=== PATIENT | male | born 1935 | race American Indian/Alaskan Native ===

== ENCOUNTER 2017-12-06 09:44 | Outpatient (CLI) | payer MEDICARE ==
[2017-12-06] MEDS ORDERED: AD OINTMENT TP ONE (10:28)
[2017-12-06] MEDS ORDERED: XYLOCAINE TOPICAL 4% TP ONE ×2 (10:28→13:00)
[2017-12-06] MEDS ORDERED: AD OINTMENT TP PRN (11:55)
== END 2017-12-06 09:45 | disposition home or self-care (01) ==
LOC: WOUND 09:44
PROVIDERS: ATTEND Surgery
DX: I87.311 Chronic venous hypertension (idiopathic) with ulcer of right lower extremity (principal); E11.622 Type 2 diabetes mellitus with other skin ulcer; L97.212 Non-pressure chronic ulcer of right calf with fat layer exposed
CPT/HCPCS: A6250

== ENCOUNTER 2017-12-11 12:42 | Outpatient (CLI) | payer MEDICARE | END 2017-12-11 12:43 | disposition home or self-care (01) | LOC: VAS 12:42 | PROVIDERS: ATTEND Surgery | DX: M79.662 Pain in left lower leg (principal); M79.661 Pain in right lower leg; E11.9 Type 2 diabetes mellitus without complications; I10 Essential (primary) hypertension; E78.00 Pure hypercholesterolemia, unspecified; M19.90 Unspecified osteoarthritis, unspecified site | CPT/HCPCS: 36415; 83036; 93970 ==

== ENCOUNTER 2017-12-20 10:45 | Outpatient (CLI) | payer MEDICARE ==
[2017-12-20] MEDS ORDERED: AD OINTMENT TP ONE (11:01)
[2017-12-20] MEDS ORDERED: XYLOCAINE TOPICAL 4% TP ONE ×2 (11:01→16:32)
[2017-12-20] MEDS ORDERED: AD OINTMENT TP PRN (16:32)
== END 2017-12-20 10:46 | disposition home or self-care (01) ==
LOC: WOUND 10:45
PROVIDERS: ATTEND Surgery
DX: I87.311 Chronic venous hypertension (idiopathic) with ulcer of right lower extremity (principal); E11.622 Type 2 diabetes mellitus with other skin ulcer; L97.212 Non-pressure chronic ulcer of right calf with fat layer exposed
CPT/HCPCS: A6250

== ENCOUNTER 2019-12-13 17:06 | Emergency (ER) | payer MEDICARE ==
[2019-12-13 22:51] LABS: Basophils % (Auto) 0.4 % (0.0-1.8); Hematocrit 27.6 % (35.5-45.6); Hemoglobin 9.2 gm/dl (11.8-15.2); Lymphocytes # (Auto) 0.9 K/mm3 (1.2-5.4); Lymphocytes % (Auto) 22.1 % (13.4-35.0); Mean Corpuscular HGB Conc 33 % (32-34); Mean Corpuscular Volume 98 fl (84-94); Monocytes # (Auto) 0.4 K/mm3 (0.0-0.8); Monocytes % (Auto) 9.2 % (0.0-7.3); Platelet Count 187 K/mm3 (140-440); Red Blood Count 2.83 M/mm3 (3.65-5.03); Red Cell Distribution Width 15.9 % (13.2-15.2)
[2019-12-13 23:13] LABS: Calcium 8.3 mg/dL (8.4-10.2)
[2019-12-13] MEDS ORDERED: ACETAMINOPHEN 325 MG TAB PO ONE (23:31)
--- NOTE | 2019-12-13 23:36 | Emergency Department Report ---
ED General Adult HPI - General Chief complaint: Extremity Problem,Nontraumatic Stated complaint: SWELLING BOTH LEGS Time Seen by Provider: 12/13/19 22:20 Source: patient Mode of arrival: Ambulatory Limitations: No Limitations - History of Present Illness Initial comments: Patient is 84-year-old F [place] male with a past medical history of diabetes hypertension who is here stating that he has had some bilateral lower extremity edema for the past 2 weeks. Patient states this is on and off problem that is had in the past. 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 Patient states he has had ultrasound in the recent past for DVT which was negative. Denying any chest pain shortness of breath fevers chills nausea vomiting at this time. - Related Data Home Medications Medication Instructions Recorded Confirmed Last Taken Benazepril HCl 20 mg PO BID 09/09/13 11/13/13 09/08/13 Brimonidine Tartrate [Alphagan P 1 drop OU BID 09/09/13 11/13/13 09/09/13 0.1%] Brinzolamide [Azopt 1%] 1 drops OU BID 09/09/13 11/13/13 09/09/13 Doxazosin Mesylate 4 mg PO BID 09/09/13 11/13/13 09/08/13 Insulin NPH/Regular [NovoLIN 70/30] 25 unit SQ QPM 09/09/13 11/13/13 09/08/13 Pravastatin Sodium [Pravastatin] 20 mg PO QHS 09/09/13 11/13/13 09/08/13 Tamsulosin [Flomax] 0.4 mg PO DAILY 09/09/13 11/13/13 09/08/13 dilTIAZem CD [Cardizem CD] 120 mg PO BID 09/09/13 11/13/13 09/09/13 Furosemide [Lasix TAB] 20 mg PO DAILY 11/13/13 11/13/13 Unknown Imatinib Mesylate [Gleevec] 400 mg PO DAILY 11/13/13 11/13/13 Unknown Previous Rx's Medication Instructions Recorded Last Taken Type Furosemide [Lasix] 20 mg PO QDAY #10 tablet 12/13/19 Unknown Rx traMADoL [Ultram] 50 mg PO Q6HR PRN #14 tablet 12/13/19 Unknown Rx Allergies Allergy/AdvReac Type Severity Reaction Status Date / Time No Known Allergies Allergy Verified 09/09/13 09:08 ED Review of Systems ROS: Stated complaint: SWELLING BOTH LEGS Other details as noted in HPI Comment: All other systems reviewed and negative ED Past Medical Hx - Past Medical History Previous Medical History?: Yes Hx Hypertension: Yes Hx Congestive Heart Failure: No Hx Diabetes: Yes Hx Arthritis: Yes Hx Asthma: No Hx COPD: No Hx HIV: No - Surgical History Past Surgical History?: Yes Additional Surgical History: Back surgery - Social History Smoking Status: Never Smoker - Medications Home Medications: Home Medications Medication Instructions Recorded Confirmed Last Taken Type Benazepril HCl 20 mg PO BID 09/09/13 11/13/13 09/08/13 History Brimonidine Tartrate [Alphagan P 1 drop OU BID 09/09/13 11/13/13 09/09/13 History 0.1%] Brinzolamide [Azopt 1%] 1 drops OU BID 09/09/13 11/13/13 09/09/13 History Doxazosin Mesylate 4 mg PO BID 09/09/13 11/13/13 09/08/13 History Insulin NPH/Regular [NovoLIN 70/30] 25 unit SQ QPM 09/09/13 11/13/13 09/08/13 History Pravastatin Sodium [Pravastatin] 20 mg PO QHS 09/09/13 11/13/13 09/08/13 History Tamsulosin [Flomax] 0.4 mg PO DAILY 09/09/13 11/13/13 09/08/13 History dilTIAZem CD [Cardizem CD] 120 mg PO BID 09/09/13 11/13/13 09/09/13 History Furosemide [Lasix TAB] 20 mg PO DAILY 11/13/13 11/13/13 Unknown History Imatinib Mesylate [Gleevec] 400 mg PO DAILY 11/13/13 11/13/13 Unknown History Furosemide [Lasix] 20 mg PO QDAY #10 tablet 12/13/19 Unknown Rx traMADoL [Ultram] 50 mg PO Q6HR PRN #14 tablet 12/13/19 Unknown Rx ED Physical Exam - General Limitations: No Limitations General appearance: alert, in no apparent distress - Head Head exam: Present: atraumatic, normocephalic - Eye Eye exam: Present: normal appearance, PERRL, EOMI - ENT ENT exam: Present: mucous membranes moist - Neck Neck exam: Present: normal inspection - Respiratory Respiratory exam: Present: normal lung sounds bilaterally. Absent: respiratory distress, wheezes, rales, rhonchi - Cardiovascular Cardiovascular Exam: Present: regular rate, normal rhythm, normal heart sounds. Absent: systolic murmur, diastolic murmur, rubs, gallop - GI/Abdominal GI/Abdominal exam: Present: soft, normal bowel sounds - Rectal Rectal exam: Present: deferred - Extremities Exam Extremities exam: Present: normal inspection, other (3+ edema the bilateral lower extremities from the knees down) - Back Exam Back exam: Present: normal inspection - Neurological Exam Neurological exam: Present: alert, oriented X3 - Psychiatric Psychiatric exam: Present: normal affect, normal mood - Skin Skin exam: Present: warm, dry, intact, normal color. Absent: rash ED Course Vital Signs 12/13/19 17:34 Temperature 98.9 F Pulse Rate 60 Respiratory 20 Rate Blood Pressure 170/61 O2 Sat by Pulse 100 Oximetry ED Medical Decision Making - Lab Data Result diagrams: 12/13/19 22:36 12/13/19 22:36 - Medical Decision Making Patient likely with dependent edema. Started on Lasix. Is not in toshia renal failure. Critical care attestation.: If time is entered above; I have spent that time in minutes in the direct care of this critically ill patient, excluding procedure time. ED Disposition Clinical Impression: Dependent edema Disposition: DC-01 TO HOME OR SELFCARE Is pt being admited?: No Does the pt Need Aspirin: No Condition: Stable Instructions: Leg Edema (ED) Prescriptions: Furosemide [Lasix] 20 mg PO QDAY #10 tablet traMADoL [Ultram] 50 mg PO Q6HR PRN #14 tablet PRN Reason: Pain Referrals: PRIMARY CARE,MD [Primary Care Provider] - 3-5 Days
[2019-12-13 23:58] VITALS: BP 159/87
== END 2019-12-13 23:57 | disposition home or self-care (01) ==
LOC: ED 17:06
DX: R60.0 Localized edema (principal); I10 Essential (primary) hypertension; E11.9 Type 2 diabetes mellitus without complications; M13.88 Other specified arthritis, other site; Z98.890 Other specified postprocedural states; Z79.899 Other long term (current) drug therapy
CPT/HCPCS: 36415; 80048; 85025; 99283

== ENCOUNTER 2020-06-21 23:35 | Emergency (ER) | payer MEDICARE ==
--- NOTE | 2020-06-22 00:25 | Emergency Department Report ---
HPI - General Chief Complaint: Urogenital-Male Time Seen by Provider: 06/22/20 00:11 - HPI HPI: This is an 84-year-old male presents to the emergency department with the complaint of a malfunctioning or clogged Kunz catheter over the past 1 to 2 days. The patient's drain the collection bag earlier today and since then he has only put out a small amount of bloody appearing urine. Patient says that he has the sensation that he needs to urinate but is unable to do so. He has a past medical history of diabetes, CML, CHF, and some level of CKD. Patient was here in February of last year for some acute chest pain at that time, but was also evaluated for gross hematuria and a malfunctioning Kunz catheter, bilateral hydronephrosis and some acute renal failure. He had a cystoscopy done by Dr. Layton in which some clots were removed from the bladder. The patient is unsure whether he has followed with a urologist outpatient since that time. His primary care physician is Dr. Durand and his oncologist is Dr Robertson. ED Past Medical Hx - Past Medical History Hx Hypertension: Yes Hx Heart Attack/AMI: Yes (NSTEMI. CHF EF .25) Hx Congestive Heart Failure: No Hx Diabetes: Yes Hx Renal Disease: Yes (CKD. Bilateral hydronephrosis) Hx of Cancer: Yes (leukemia) Hx Sickle Cell Disease: No Hx Arthritis: Yes Hx Asthma: No Hx COPD: No Hx HIV: No - Surgical History Additional Surgical History: Back surgery - Social History Smoking Status: Never Smoker Substance Use Type: Alcohol - Medications Home Medications: Home Medications Medication Instructions Recorded Confirmed Last Taken Type Brimonidine Tartrate [Alphagan P 1 drop OU BID 09/09/13 11/13/13 09/09/13 History 0.1%] Brinzolamide [Azopt 1%] 1 drops OU BID 09/09/13 11/13/13 09/09/13 History Pravastatin Sodium [Pravastatin] 20 mg PO QHS 09/09/13 11/13/13 09/08/13 History Tamsulosin [Flomax] 0.4 mg PO DAILY 09/09/13 11/13/13 09/08/13 History Imatinib Mesylate [Gleevec] 400 mg PO DAILY 11/13/13 11/13/13 Unknown History Insulin Lispro [Humalog] 0 unit SUB-Q ACHS vial 02/11/20 Unknown Rx Isosorb Dinit/Hydralazine [Bidil 1 each PO Q8HR tablet 02/11/20 Unknown Rx 20/37.5MG] Nitroglycerin [Nitrostat] 0.4 mg SL Q5M PRN tablet 02/11/20 Unknown Rx carvediloL [Coreg] 6.25 mg PO BID tablet 02/11/20 Unknown Rx Ciprofloxacin HCl 500 mg PO BID #14 tablet 06/22/20 Unknown Rx ED Review of Systems ROS: Stated complaint: UTI Other details as noted in HPI Comment: All other systems reviewed and negative Constitutional: denies: chills, fever Eyes: denies: eye pain, vision change ENT: denies: ear pain, throat pain Respiratory: denies: cough, shortness of breath Cardiovascular: denies: chest pain, palpitations Gastrointestinal: abdominal pain. denies: vomiting Genitourinary: dysuria, hematuria Musculoskeletal: denies: back pain, arthralgia Skin: denies: rash, lesions Neurological: denies: headache, weakness Physical Exam - Physical Exam Vital Signs: Vital Signs 06/22/20 00:17 Temperature 99.4 F Pulse Rate 110 H Respiratory 18 Rate Blood Pressure 191/85 [Left] O2 Sat by Pulse 100 Oximetry Physical Exam: GENERAL: The patient is well-developed well-nourished. HENT: Normocephalic. Atraumatic. Patient has moist mucous membranes. EYES: Extraocular motions are intact. NECK: Supple. Trachea is midline. CHEST/LUNGS: Clear to auscultation. There is no respiratory distress noted. HEART/CARDIOVASCULAR: Regular. There is mild tachycardia. There is no murmur. ABDOMEN: Abdomen is soft. There is some reproducible suprapubic tenderness to palpation. Patient has normal bowel sounds. SKIN: Skin is warm and dry. NEURO: The patient is awake, alert, and oriented. The patient is cooperative. The patient has no focal neurologic deficits. Normal speech. MUSCULOSKELETAL: There is no tenderness or deformity. : Kunz catheter in place with visible gross hematuria and some clots. ED Course Vital Signs 06/22/20 00:17 Temperature 99.4 F Pulse Rate 110 H Respiratory 18 Rate Blood Pressure 191/85 [Left] O2 Sat by Pulse 100 Oximetry ED Medical Decision Making - Lab Data Result diagrams: 06/22/20 00:33 06/22/20 00:33 Lab Results 06/22/20 06/22/20 06/22/20 Range/Units 00:33 00:33 02:34 WBC 3.7 L (4.5-11.0) K/mm3 RBC 2.69 L (3.65-5.03) M/mm3 Hgb 8.2 L (11.8-15.2) gm/dl Hct 24.8 L (35.5-45.6) % MCV 93 (84-94) fl MCH 31 (28-32) pg MCHC 33 (32-34) % RDW 21.8 H (13.2-15.2) % Plt Count 197 (140-440) K/mm3 Lymph % (Auto) 17.4 (13.4-35.0) % [place] % (Auto) 4.8 (0.0-7.3) % Eos % (Auto) 0.4 (0.0-4.3) % Baso % (Auto) 0.8 (0.0-1.8) % Lymph # (Auto) 0.6 L (1.2-5.4) K/mm3 [place] # (Auto) 0.2 (0.0-0.8) K/mm3 Eos # (Auto) 0.0 (0.0-0.4) K/mm3 Baso # (Auto) 0.0 (0.0-0.1) K/mm3 Seg Neutrophils % 76.6 H (40.0-70.0) % Seg Neutrophils # 2.8 (1.8-7.7) K/mm3 Sodium 142 (137-145) mmol/L Potassium 3.2 L (3.6-5.0) mmol/L Chloride 103.2 (98-107) mmol/L Carbon Dioxide 30 (22-30) mmol/L Anion Gap 12 mmol/L BUN 14 (9-20) mg/dL Creatinine 1.4 H (0.8-1.3) mg/dL Estimated GFR 58 ml/min BUN/Creatinine Ratio 10 % Glucose 125 H (75-100) mg/dL Calcium 7.5 L (8.4-10.2) mg/dL Urine Color Red (Yellow) Urine Turbidity Cloudy (Clear) Urine pH 8.0 H (5.0-7.0) Ur Specific [place] 1.060 H (1.003-1.030) Urine Protein 100 mg/dl (Negative) mg/dL Urine Glucose (UA) Negative (Negative) mg/dL Urine Ketones Negative (Negative) mg/dL Urine Blood Large A (Negative) Urine Nitrite Negative (Negative) Urine Bilirubin Negative (Negative) Urine Urobilinogen 0.0 (<2.0) mg/dL Ur Leukocyte Esterase Large (Negative) Urine WBC (Auto) > 182.0 H (0.0-6.0) /HPF Urine RBC (Auto) > 182.0 (0.0-6.0) /HPF Urine Bacteria (Auto) 4+ (Negative) /HPF Urine WBC Clumps 2+ /HPF Urine Mucus 1+ /HPF - Medical Decision Making This patient presents with a clogged or obstructed Kunz catheter with some gross hematuria seen. The bladder scan said that there was about 500 cc of retained urine. The Kunz catheter was removed and a new one was placed and the patient put out close to 800 cc of urine. At first there was still moderate gross hematuria but it started to clear. Urinalysis shows a urinary tract infection with hematuria. CBC shows some anemia with a hemoglobin of 8.2 but this is higher than previous visit. No significant renal insufficiency. After the Kunz catheter was placed and the patient drained his bladder he was feeling greatly improved. The tachycardia resolved and the hypertension improved. He has been reevaluated multiple times over multiple hours and has remained stable throughout his ED course. He appears safe for discharge home at this time. He has been instructed to follow-up with his primary care physician, his oncologist, and has been given an outpatient referral for urology. Critical Care Time: No Critical care attestation.: If time is entered above; I have spent that time in minutes in the direct care of this critically ill patient, excluding procedure time. ED Disposition Clinical Impression: UTI (urinary tract infection) Qualifiers: Urinary tract infection type: acute cystitis Hematuria presence: with hematuria Qualified Code(s): N30.01 - Acute cystitis with hematuria Obstruction of Kunz catheter Qualifiers: Encounter type: initial encounter Qualified Code(s): T83.091A - Other mechanical complication of indwelling urethral catheter, initial encounter Hematuria Qualifiers: Hematuria type: gross Qualified Code(s): R31.0 - Gross hematuria Disposition: TO HOME OR SELFCARE Is pt being admited?: No Condition: Stable Instructions: Indwelling Urinary Catheter Care, Adult, Urinary Tract Infection, Adult, Hematuria, Adult Additional Instructions: Please follow-up with your primary care physician in the next few days. I am giving you a referral for a local urologist, Dr. Layton, to follow-up regarding your Kunz catheter blockage and subsequent replacement, as well as the blood seen in your urine. Take the antibiotics as prescribed. Return to the emergency department with any worsening of your symptoms, new or concerning symptoms not addressed during this current emergency department visit, or with any acute distress. Prescriptions: Ciprofloxacin HCl 500 mg PO BID #14 tablet Referrals: PRIMARY CAREMD [Referring] - 3-5 Days JENIFFER LAYTON MD [Staff Physician] - 3-5 Days Time of Disposition: 04:32
[2020-06-22 01:00] LABS: Basophils % (Auto) 0.8 % (0.0-1.8); Eosinophils % (Auto) 0.4 % (0.0-4.3); Hematocrit 24.8 % (35.5-45.6); Hemoglobin 8.2 gm/dl (11.8-15.2); Lymphocytes # (Auto) 0.6 K/mm3 (1.2-5.4); Lymphocytes % (Auto) 17.4 % (13.4-35.0); Mean Corpuscular HGB Conc 33 % (32-34); Mean Corpuscular Volume 93 fl (84-94); Monocytes # (Auto) 0.2 K/mm3 (0.0-0.8); Monocytes % (Auto) 4.8 % (0.0-7.3); Platelet Count 197 K/mm3 (140-440); Red Blood Count 2.69 M/mm3 (3.65-5.03)
[2020-06-22 01:03] LABS: Red Cell Distribution Width 21.8 % (13.2-15.2)
[2020-06-22 01:17] LABS: Calcium 7.5 mg/dL (8.4-10.2)
[2020-06-22] MEDS ORDERED: POTASSIUM CHLORIDE ER 20 MEQ TAB PO ONE ×2 (01:50→06:10)
[2020-06-22] MEDS ORDERED: SODIUM CHLORIDE 0.9% IRRIG SOLN 2000 ML IR SCH (02:00)
[2020-06-22 04:25] LABS: Bacteria,Urine 4+ /HPF (Negative); Mucus,Urine 1+ /HPF
[2020-06-22 04:26] LABS: Color,Urine Red (Yellow); RBC,Urine > 182.0 /HPF (0.0-6.0); WBC,Urine > 182.0 /HPF (0.0-6.0)
[2020-06-22 04:27] LABS: Bilirubin,Urine Negative (Negative); Blood,Urine Large (Negative)
[2020-06-22 05:49] VITALS: BP 176/72
== END 2020-06-22 08:01 | disposition home or self-care (01) ==
LOC: ED 23:35
DX: T83.098A Other mechanical complication of other urinary catheter, initial encounter (principal); N39.0 Urinary tract infection, site not specified; R31.0 Gross hematuria; I10 Essential (primary) hypertension; I25.2 Old myocardial infarction; E11.9 Type 2 diabetes mellitus without complications; M19.91 Primary osteoarthritis, unspecified site; Z98.890 Other specified postprocedural states; Z79.899 Other long term (current) drug therapy; Z79.4 Long term (current) use of insulin; Y92.89 Other specified places as the place of occurrence of the external cause
CPT/HCPCS: 36415; 51702; 80048; 81001; 85025; 87086

== ENCOUNTER 2020-09-15 18:47 | Emergency (ER) | payer MEDICARE ==
[2020-09-15] MEDS ORDERED: ONDANSETRON 4 MG/2 ML INJ IV ONE (19:33)
[2020-09-15] MEDS ORDERED: HYDROmorphone 1 MG/1 ML INJ IV ONE (19:33)
--- NOTE | 2020-09-15 19:39 | Emergency Department Report ---
HPI - General Chief Complaint: Back Pain/Injury Time Seen by Provider: 09/15/20 19:15 - HPI HPI: Room 18 The patient is an 84-year-old male present with a chief complaint of sacral pain. Patient states he has had pain in his buttocks from the sacral decubitus ulcer for the past 2 to 3 months as he is bedridden. Patient states pain seemed to have worsened over the past week or so. Of note the patient states he slid off of his bed last week and fell to the ground but does not believe it changed his pain. Patient currently gives his pain a score of 10/10. The patient is on home hospice and has a history of leukemia. The patient states he was given a new prescription for new pain medication today but has not yet taken any. ED Past Medical Hx - Past Medical History Hx Hypertension: Yes Hx Heart Attack/AMI: Yes (NSTEMI. CHF EF .25) Hx Diabetes: Yes Hx Renal Disease: Yes (CKD. Bilateral hydronephrosis) Hx of Cancer: Yes (Leukemia) Hx Arthritis: Yes - Surgical History Additional Surgical History: Back surgery - Family History Family history: no significant - Social History Smoking Status: Never Smoker Substance Use Type: Alcohol (Occasional) - Medications Home Medications: Home Medications Medication Instructions Recorded Confirmed Last Taken Type Brimonidine Tartrate [Alphagan P 1 drop OU BID 09/09/13 11/13/13 09/09/13 History 0.1%] Brinzolamide [Azopt 1%] 1 drops OU BID 09/09/13 11/13/13 09/09/13 History Pravastatin Sodium [Pravastatin] 20 mg PO QHS 09/09/13 11/13/13 09/08/13 History Tamsulosin [Flomax] 0.4 mg PO DAILY 09/09/13 11/13/13 09/08/13 History Imatinib Mesylate [Gleevec] 400 mg PO DAILY 11/13/13 11/13/13 Unknown History Insulin Lispro [Humalog] 0 unit SUB-Q ACHS vial 02/11/20 Unknown Rx Isosorb Dinit/Hydralazine [Bidil 1 each PO Q8HR tablet 02/11/20 Unknown Rx 20/37.5MG] Nitroglycerin [Nitrostat] 0.4 mg SL Q5M PRN tablet 02/11/20 Unknown Rx carvediloL [Coreg] 6.25 mg PO BID tablet 02/11/20 Unknown Rx Ciprofloxacin HCl 500 mg PO BID #14 tablet 06/22/20 Unknown Rx ED Review of Systems ROS: Stated complaint: RECTAL/BACK PAIN Other details as noted in HPI Constitutional: no symptoms reported Eyes: denies: eye pain ENT: denies: throat pain Respiratory: no symptoms reported Cardiovascular: denies: chest pain Endocrine: no symptoms reported Gastrointestinal: denies: abdominal pain Genitourinary: denies: dysuria Musculoskeletal: myalgia Neurological: denies: headache Physical Exam - Physical Exam Physical Exam: GENERAL: The patient is well-developed well-nourished male lying on stretcher not appearing to be in acute distress. [] HEENT: Normocephalic. Atraumatic. Extraocular motions are intact. Patient has moist mucous membranes. NECK: Supple. Trachea midline CHEST/LUNGS: Clear to auscultation. There is no respiratory distress noted. HEART/CARDIOVASCULAR: Regular. There is no tachycardia. There is no gallop rub or murmur. ABDOMEN: Abdomen is soft, nontender. Patient has normal bowel sounds. There is no abdominal distention. SKIN: There is a stage I II sacral decubitus ulcer. There is no diaphoresis. NEURO: The patient is awake, alert, and oriented. The patient is cooperative. The patient has no focal neurologic deficits. The patient has normal speech MUSCULOSKELETAL: There is no tenderness or deformity. There is no limitation range of motion. There is no evidence of acute injury. ED Course - Reevaluation(s) Reevaluation #1: 09/15/20 22:04 Patient resting comfortably after medication. Patient states the medicine helped his pain significantly ED Medical Decision Making - Lab Data Result diagrams: 09/15/20 19:36 09/15/20 19:36 Laboratory Tests 09/15/20 09/15/20 09/15/20 19:36 19:36 19:36 WBC 4.3 L RBC 2.24 L Hgb 7.2 L Hct 21.6 L MCV 96 H MCH 32 MCHC 33 RDW 16.3 H Plt Count 240 Lymph % (Auto) 22.0 [place] % (Auto) 7.8 H Eos % (Auto) 2.4 Baso % (Auto) [employer] Lymph # (Auto) 1.0 L [place] # (Auto) 0.3 Eos # (Auto) 0.1 Baso # (Auto) 0.0 Seg Neutrophils % 66.8 Seg Neutrophils # 2.9 Sodium 136 L Potassium 3.8 Chloride 100.7 Carbon Dioxide 26 Anion Gap 13 BUN 11 Creatinine 0.9 Estimated GFR > 60 BUN/Creatinine Ratio 12 Glucose 119 H Calcium 7.4 L Total Bilirubin 0.30 Direct Bilirubin < 0.2 Indirect Bilirubin 0.1 AST 20 ALT 6 L Alkaline Phosphatase 61 Total Protein 6.0 L Albumin 2.6 L Albumin/Globulin Ratio 0.8 Corrected calcium 8.52 - Radiology Data Radiology results: report reviewed (Sacral x-ray), image reviewed (Sacral x-ray) interpreted by me: Sacral x-ray-no acute fracture seen, no foreign body seen [facility] [address] [id number] XRay Report Signed Patient: KEZIA NAILS MR#: [id number] : 1935 Acct:[id number] Age/Sex: 84 / M ADM Date: 09/15/20 Loc: ED [facility] Dr: Ordering Physician: SEBASTIAN MADERA MD Date of Service: 09/15/20 Procedure(s): XR spine sacrum/coccyx 2+V Accession Number(s): [id number] cc: SEBASTIAN MADERA MD Fluoro Time In Minutes: SACRUM 3 VIEW(S) INDICATION / CLINICAL INFORMATION: Sacral pain, recent fall from bed COMPARISON: None available. FIN DINGS: BONES / JOINT(S): No definite fracture or subluxation. Multilevel changes of the sacrum. SOFT TISSUES: No significant abnormality. ADDITIONAL FINDINGS: Degenerative changes of the visualized lower lumbar spine. Signer Name: Phil Lima MD Signed: 09/15/2020 8:32 PM Workstation Name: [id number] Transcribed By: SB Dictated By: PHIL LIMA MD Electronically Authenticated By: PHIL LIMA MD Signed Date/Time: 09/15/202031 DD/ 30 TD/TT: Print Cancel - Differential Diagnosis Sacral decubitus pain, sacral fracture, Critical care attestation.: If time is entered above; I have spent that time in minutes in the direct care of this critically ill patient, excluding procedure time. ED Disposition Clinical Impression: Sacral decubitus ulcer, Leukemia Disposition: DC-01 TO HOME OR SELFCARE Is pt being admited?: No Does the pt Need Aspirin: No Condition: Stable Instructions: Pressure Injury Additional Instructions: Return to the emergency department should you develop worsening symptoms, inability to tolerate food or liquids, high fever or any other concerns Referrals: PRIMARY CAREMD [Primary Care Provider] - 3-5 Days Time of Disposition: 22:05
[2020-09-15 20:08] LABS: BUN/Creatinine Ratio 12; Blood Urea Nitrogen 11 mg/dL (9-20); Calcium 7.4 mg/dL (8.4-10.2); Hemolysis Index 22
[2020-09-15 20:22] LABS: Eosinophils # (Auto) 0.1 K/mm3 (0.0-0.4); Eosinophils % (Auto) 2.4 % (0.0-4.3); Hematocrit 21.6 % (35.5-45.6); Hemoglobin 7.2 gm/dl (11.8-15.2); Mean Corpuscular HGB Conc 33 % (32-34); Mean Corpuscular Volume 96 fl (84-94); Monocytes # (Auto) 0.3 K/mm3 (0.0-0.8); Monocytes % (Auto) 7.8 % (0.0-7.3); Platelet Count 240 K/mm3 (140-440); Red Blood Count 2.24 M/mm3 (3.65-5.03); Red Cell Distribution Width 16.3 % (13.2-15.2)
[2020-09-15 20:32] LABS: Alanine Aminotransferase 6 units/L (7-56); Albumin 2.6 g/dL (3.9-5)
--- NOTE | 2020-09-15 20:37 | XRay Report ---
SACRUM 3 VIEW(S) INDICATION / CLINICAL INFORMATION: Sacral pain, recent fall from bed COMPARISON: None available. FINDINGS: BONES / JOINT(S): No definite fracture or subluxation. Multilevel changes of the sacrum. SOFT TISSUES: No significant abnormality. ADDITIONAL FINDINGS: Degenerative changes of the visualized lower lumbar spine. Signer Name: Phil Martinez MD Signed: 09/15/2020 8:32 PM Workstation Name: [id number]
[2020-09-15 20:46] LABS: Bilirubin,Direct < 0.2 mg/dL (0-0.2)
[2020-09-16 08:47] VITALS: BP 166/68
== END 2020-09-16 08:36 | disposition home or self-care (01) ==
LOC: ED 18:47
DX: L89.159 Pressure ulcer of sacral region, unspecified stage (principal); C95.90 Leukemia, unspecified not having achieved remission; I12.9 Hypertensive chronic kidney disease with stage 1 through stage 4 chronic kidney disease, or unspecified chronic kidney disease; E11.22 Type 2 diabetes mellitus with diabetic chronic kidney disease; N18.9 Chronic kidney disease, unspecified; M19.90 Unspecified osteoarthritis, unspecified site; Z98.890 Other specified postprocedural states
CPT/HCPCS: 36415; 72220; 80048; 80076; 82962; 85025; 96374; 96375; 99284; J1170; J2405